=== PATIENT | male | born 1965 | race Caucasian/White ===

== ENCOUNTER 2017-10-21 13:49 | Outpatient (CLI) | payer MEDICARE ==
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
== END 2017-10-21 13:50 | disposition home or self-care (01) ==
LOC: MADCT 13:49
PROVIDERS: ATTEND Family Medicine
DX: S09.90XD Unspecified injury of head, subsequent encounter (principal)
CPT/HCPCS: 70450

== ENCOUNTER 2017-10-29 11:43 | Emergency (ER) | payer MEDICARE ==
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
== END 2017-10-29 13:10 | disposition home or self-care (01) ==
LOC: MADERS 11:43
DX: S00.93XA Contusion of unspecified part of head, initial encounter (principal); Y09 Assault by unspecified means; Z79.899 Other long term (current) drug therapy
CPT/HCPCS: 70450